=== PATIENT | female | born 1990 | race Caucasian/White ===

== ENCOUNTER 2025-03-22 14:53 | Emergency (ER) | payer BC, SELFPAY ==
--- NOTE | 2025-03-22 15:04 | ED.URI ---
HPI - URI/Sore Throat General Chief Complaint: Upper Respiratory Infection Stated Complaint: sore throat Time Seen by Provider: 03/22/25 15:08 Source: patient and RN notes reviewed Mode of arrival: ambulatory Limitations: no limitations History of Present Illness HPI Narrative: 34-year-old female presents [facility] complaining of sore throat, sneezing, pain with swallowing for 2 days. Patient denies any other upper respiratory symptoms, fevers, cough, body aches, chills, nausea, vomiting, diarrhea. Patient says she is currently . Related Data Home Medications ?Medication ?Instructions ?Recorded ?Confirmed ?Last Taken ?Type No Home Medications 03/22/25 03/22/25 Unknown History Allergies Allergy/AdvReac Type Severity Reaction Status Date / Time erythromycin base Allergy Mild Rash Verified 03/22/25 15:09 Review of Systems Review of Systems: CONSTITUTIONAL: Denies fever, chills, body aches, or sweats. EYES: Denies visual changes, redness, or discharge. ENT: Negative for rhinorrhea, congestion, difficulty swallowing or otalgia. Positive for sneezing and sore throat. CARDIOVASCULAR: Denies chest pain, palpitations, or edema. RESPIRATORY: Negative for coughing and dyspnea. GASTROINTESTINAL: Denies abdominal pain, nausea, vomiting, or diarrhea. GENITOURINARY: Denies dysuria or hematuria. SKIN: Denies rash or itching. MUSCULOSKELETAL: Denies back pain, joint pain, or myalgia. NEUROLOGIC: Denies headache, numbness, or weakness. PSYCHIATRIC: Denies anxiety or depression. All other systems reviewed are negative, except as documented in HPI. PMFSH Comments At the time of my signature, I reviewed and agree with the nursing past medical, surgical, social, and family history. There is no relevant family history pertinent to the patient complaint. Exam Narrative: GENERAL: This is a well-nourished, well-developed adult, in no apparent distress. They are non ill-appearing, nontoxic appearing. HEAD: normocephalic, atraumatic. EYES: Sclera clear/white. Vision is grossly intact. Conjunctiva normal bilaterally. Extraocular movements intact. EARS: External ears normal, auditory canals clear and without drainage, TMs without erythema or perforation. Hearing grossly intact. NOSE: External nose normal with no obvious nasal discharge, nasal turbinates pink without redness or swelling, no rhinorrhea. THROAT: Mucous membranes moist, posterior pharynx erythematous without exudate. Uvula is midline. Cobblestone appearance. Postnasal drip present. NECK: Neck supple, non-tender without lymphadenopathy, masses or thyromegaly. CARDIOVASCULAR: Regular rate and rhythm without murmurs, gallops, or rubs. RESPIRATORY: Clear to auscultation. Breath sounds equal bilaterally. No wheezes, rales, or rhonchi. SKIN: warm, Dry, intact with no suspicious lesions or rash, good texture and turgor. NEURO: awake, alert, and oriented to person, place and time. There were no obvious focal neurologic abnormalities. EXTREMITIES: No joint tenderness, effusion, or edema noted. BACK: Nontender without deformity. Course Course Emergency Course: Portions of this record may have been created with voice recognition software Level of Care: Express Care Visit Vital Signs Vital signs: Vital Signs Temperature 98.4 F 03/22/25 15:05 Pulse Rate 86 03/22/25 15:05 Respiratory Rate 16 03/22/25 15:05 Blood Pressure 128/83 03/22/25 15:05 Pulse Oximetry 98 03/22/25 15:05 Oxygen Delivery Room Air 03/22/25 15:05 Temperature 98.4 F 03/22/25 15:05 Pulse Rate 86 03/22/25 15:05 Respiratory Rate 16 03/22/25 15:05 Blood Pressure 128/83 03/22/25 15:05 Pulse Oximetry 98 03/22/25 15:05 Oxygen Delivery Room Air 03/22/25 15:05 MDM - URI/Sore Throat MDM Narrative Medical decision making narrative: Rapid strep negative. A throat culture is pending. Given exam findings it is likely viral pharyngitis. Discussed physical exam findings. Advised supportive measures and signs/symptoms to go to the ER. Pt is appropriate for outpt treatment and f/u. Differential Diagnosis Differential diagnosis: Likely upper respiratory infection, viral infection, pharyngitis (Strep or viral, allergic rhinitis, seasonal allergies) and other Lab Data Attestation: I reviewed the patient's lab results. Labs: Lab Results 03/22/25 Range/Units 15:08 POC Grp A Strep Screen Negative (Negative) Discharge Plan Discharge Clinical Impression: Viral pharyngitis Patient Disposition: Home Condition: Stable Instructions: Pharyngitis (ED) Additional Instructions: Your rapid strep swab was negative today at [facility]. You will be notified in a few days if the culture comes back positive for strep, and appropriate antibiotics will be called in for you at that time. Your symptoms are likely due to a viral illness, which is not treated with antibiotics. Viral symptoms can be present for up to 10-14 days. Take Tylenol or ibuprofen for fever or pain. You may try [id number] Claritin or Zyrtec for congestion however this may affect your breast milk production. You may try salt water gargle rinses or peppermint tea to help with your throat pain. Rest and stay hydrated. Follow up with your PCP in 3-5 days if symptoms are not improving. Go to the ER immediately if you develop difficulty breathing or swallowing, nausea vomiting, or any other concerns Patient Language: Tamaz[place] Prescriptions: No Action No Home Medications Follow-up/Referrals: PHYSICIAN,MEDICAL ASSISTANT PRN [Primary Care Provider] - Time of Disposition: 15:28
[2025-03-22 15:05] VITALS: BP 128/83; PULSE 86; RESP 16; TEMP 36.9; O2SAT 98
[2025-03-22 15:19] LABS: EDSTREPNEGPOS1 Negative (Negative)
== END 2025-03-22 15:31 | disposition home or self-care (01) ==
PROVIDERS: Referring Provider Emergency Medicine
DX: J02.8 Acute pharyngitis due to other specified organisms (principal)
CPT/HCPCS: 87081; 87880; 99203; G0463